=== PATIENT | male | born 1940 | race Caucasian/White ===

== ENCOUNTER 2019-12-18 08:20 | Outpatient (CLI) | payer MEDICARE ==
--- NOTE | 2019-12-18 11:22 | MRI ---
MRI OF THE RIGHT KNEE WITHOUT CONTRAST: INDICATION: History of osteoarthritis. COMPARISON: CT of the right knee dated 09/12/2019 and a right knee radiograph dated 09/06/2019. FINDINGS: There are prominent marginal osteophytes affecting all compartments of the right knee but most severe ly affecting the medial femorotibial joint compartment where there are areas of full-thickness articu lar cartilage thinning and subchondral edema involving the medial tibial plateau and medial femoral c ondyle. There is a complex multidirectional degenerative-type tear involving the anterior junction, body, and posterior horn of the medial meniscus. There is a vertically oriented radial component inv olving the posterior horn of the medial meniscus with extension into the posterior root. There is ex trusion of the medial meniscus. There is a highly degenerative multidirectional tear involving the p osterior root of the lateral meniscus. The ACL, PCL, MCL, and LCLC are intact. The extensor mechani sm is intact. There is a moderate-sized joint effusion and Neville's cyst present. A small medial sup rapatellar synovial PLICA. IMPRESSION: 1. Moderate to severe osteoarthrosis of the right knee. 2. Medial and lateral meniscal tears. POS: [facility]
== END 2019-12-18 08:21 | disposition home or self-care (01) ==
LOC: SCSMRI 08:20
PROVIDERS: ATTEND Internal Medicine
DX: M17.9 Osteoarthritis of knee, unspecified (principal); M17.11 Unilateral primary osteoarthritis, right knee; S83.241A Other tear of medial meniscus, current injury, right knee, initial encounter; S83.281A Other tear of lateral meniscus, current injury, right knee, initial encounter

== ENCOUNTER 2021-03-08 10:23 | Outpatient (CLI) | payer MEDICARE | END 2021-03-08 10:24 | disposition home or self-care (01) | LOC: SCSMRI 10:23 | PROVIDERS: ATTEND Internal Medicine | DX: M47.812 Spondylosis without myelopathy or radiculopathy, cervical region (principal) | CPT/HCPCS: 72141 ==

== ENCOUNTER 2021-07-18 10:40 | Outpatient (CLI) | payer MEDICARE ==
[2021-07-18 13:03] LABS: #Eosinphils 0.1 10x3/uL (0.0-0.5); #Monocytes 0.5 10x3/uL (0.0-1.1); #Neutrophils 2.9 10x3/uL (1.5-8.4); %Basophils 0.4 % (0.0-2.0); %Eosinophils 1.8 % (0.0-6.0); %Lymphocytes 30.9 % (18.0-47.0); %Monocytes 9.5 % (0.0-10.0); Hemoglobin 13.1 g/dL (13.5-17.5); Mean Corpuscular HGB CONC 32.5 g/dL (32.0-36.0); Mean Corpuscular Hemoglobin 29.8 pg (27.0-33.0); Mean Corpuscular Volume 91.8 fl (81.2-95.1); Mean Platelet Volume 10.1 fl (7.4-10.4); Platelet Count 213 10x3/uL (150-450); RBC Distribution Width 13.5 % (11.5-14.5); Red Blood Cell (RBC) Count 4.39 10x6/uL (4.32-5.72); White Blood Cell (WBC) Count 5.1 10x3/uL (3.5-10.5)
[2021-07-18 23:43] LABS: SARS-CoV-2 PCR by NAA Not Detected (NotDetected)
== END 2021-07-18 10:41 | disposition home or self-care (01) ==
LOC: LABBT 10:40
PROVIDERS: ATTEND Orthopaedic Surgery Hand Surgery
DX: Z01.818 Encounter for other preprocedural examination (principal); G56.03 Carpal tunnel syndrome, bilateral upper limbs; Z20.822 Contact with and (suspected) exposure to COVID-19
CPT/HCPCS: 85025; 93005; U0003; U0005; 93010

== ENCOUNTER 2021-07-22 06:38 | Day surgery (SDC) | payer MEDICARE ==
[2021-07-20 13:11] VITALS: BMI 24.7
[2021-07-22] MEDS ORDERED: Bacitracin Zinc Ointment 30 gm TUBE ONE (08:15)
[2021-07-22] MEDS ORDERED: Neomycin-Polymyxin 1 ML AMP ONE (08:15)
[2021-07-22] MEDS ORDERED: Bupivacaine PF 0.5% 30 ML VIAL ONE (08:15)
[2021-07-22] MEDS ORDERED: Betamet Acet/Betamet Na Ph 30 MG/5 ML VIAL ONE (08:15)
[2021-07-22] MEDS ORDERED: ceFAZolin 2 GM/DEX 5% 100 ML BAG ONE (09:12)
[2021-07-22] MEDS ORDERED: Fentanyl 100 MCG/2 ML VIAL ONE (09:23)
[2021-07-22] MEDS ORDERED: PROPOFOL 200 MG/20 ML VIAL ONE (09:29)
[2021-07-22] MEDS ORDERED: Lidocaine 1% PF 5 ML VIAL ONE (09:29)
[2021-07-22] MEDS ORDERED: Ketorolac Tromethamine 30 MG/ML VIAL ONE (10:26)
== END 2021-07-22 12:10 | disposition home or self-care (01) ==
LOC: SDC 06:38
PROVIDERS: ATTEND Orthopaedic Surgery Hand Surgery
PROC: 01N50ZZ Release Median Nerve, Open Approach (ICD-10-PCS; principal; 2021-07-22)
DX: G56.03 Carpal tunnel syndrome, bilateral upper limbs (principal); I10 Essential (primary) hypertension; K21.9 Gastro-esophageal reflux disease without esophagitis; Z79.899 Other long term (current) drug therapy; Z88.5 Allergy status to narcotic agent; Z87.891 Personal history of nicotine dependence
CPT/HCPCS: J0702; J1885; J2704; J3010; S0020

== ENCOUNTER 2021-10-21 12:53 | Emergency (ER) | payer MEDICARE ==
[2021-10-21 14:23] LABS: #Lymphocytes 2.1 thou/uL (1.20-3.40); #Monocytes 1.7 thou/uL (0.11-0.59); #Neutrophils 7.8 thou/uL (1.40-6.50); %Basophils 0.2 % (0.0-1.0); %Eosinophils 0.2 % (0.0-10.0); %Lymphocytes 17.8 % (21.0-51.0); %Monocytes 14.6 % (0.0-10.0); %Neutrophils 67.3 % (42.0-75.0); Hemoglobin 14.1 g/dL (14.0-18.0); Mean Corpuscular HGB CONC 32.9 g/dL (32.0-36.0); Mean Corpuscular Hemoglobin 30.3 pg (27.0-31.0); Mean Platelet Volume 7.2 fL (7.4-10.4); Platelet Count 199 thou/uL (130-400); RBC Distribution Width 13.1 % (11.5-14.5); Red Blood Cell (RBC) Count 4.66 mill/uL (4.70-6.10); White Blood Cell (WBC) Count 11.5 thou/uL (4.8-10.8)
[2021-10-21 14:45] LABS: ALT (SGPT) 32 U/L (8-55); AST (SGOT) 30 U/L (5-34); Albumin 4.1 g/dL (3.4-4.8); Alkaline Phosphatase 85 U/L (40-110); Anion Gap 15 mmol/L (10-20); BUN (Urea Nitrogen) 16 mg/dL (8.4-25.7); Bilirubin, Total 1.6 mg/dL (0.2-1.2); Calc. Creatinine Clearance 0 mL/min (70-130); Calcium 9.2 mg/dL (7.8-10.44); Carbon Dioxide 24 mmol/L (23-31); Chloride 101 mmol/L (98-107); Globulin 3.4 g/dL (2.4-3.5); Glucose 105 mg/dL (83-110); Lipase 17 U/L (8-78); Potassium 3.7 mmol/L (3.5-5.1); Protein, Total 7.5 g/dL (5.8-8.1); Sodium 136 mmol/L (136-145)
[2021-10-21 21:06] LABS: SARS-CoV-2 PCR by NAA Not Detected (NotDetected)
== END 2021-10-21 15:35 | disposition home or self-care (01) ==
LOC: ERS 12:53
DX: J18.9 Pneumonia, unspecified organism (principal); I10 Essential (primary) hypertension; Z20.822 Contact with and (suspected) exposure to COVID-19
CPT/HCPCS: 71045; 80053; 83690; 85025; 99284; U0003; U0005; 36415

== ENCOUNTER 2022-05-07 12:01 | Inpatient (IN) | payer MEDICARE ==
[2022-05-07] MEDS ORDERED: Fentanyl 100 MCG/2 ML VIAL ONE ×2 (12:08→20:22)
[2022-05-07 12:54] LABS: Hemoglobin 13.5 g/dL (14.0-18.0); Mean Corpuscular HGB CONC 32.9 g/dL (32.0-36.0); Mean Corpuscular Hemoglobin 30.8 pg (27.0-31.0); Mean Corpuscular Volume 93.4 fL (78.0-98.0); Mean Platelet Volume 7.6 fL (7.4-10.4); Platelet Count 271 thou/uL (130-400); RBC Distribution Width 13.4 % (11.5-14.5); Red Blood Cell (RBC) Count 4.39 mill/uL (4.70-6.10); White Blood Cell (WBC) Count 6.8 thou/uL (4.8-10.8)
[2022-05-07 13:02] LABS: ALT (SGPT) 11 U/L (8-55); AST (SGOT) 17 U/L (5-34); Albumin 4.3 g/dL (3.4-4.8); Alcohol Less than 10 mg/dL (Less than 10); Alkaline Phosphatase 85 U/L (40-110); Anion Gap 23 mmol/L (10-20); BUN (Urea Nitrogen) 19 mg/dL (8.4-25.7); Bilirubin, Total 1.7 mg/dL (0.2-1.2); Calc. Creatinine Clearance 0 mL/min (70-130); Calcium 9.2 mg/dL (7.8-10.44); Carbon Dioxide 16 mmol/L (23-31); Chloride 106 mmol/L (98-107); Estimated GFR 77; Globulin 2.6 g/dL (2.4-3.5); Glucose 137 mg/dL (83-110); Protein, Total 6.9 g/dL (5.8-8.1); Sodium 142 mmol/L (136-145)
[2022-05-07 13:06] LABS: Phosphorus Less than 1.0 mg/dL (2.3-4.7)
[2022-05-07 13:11] LABS: INR-International Normal Ratio 1.2; Prothrombin Time 15.3 sec (12.0-14.7)
[2022-05-07 13:12] LABS: PTT 26.2 sec (22.9-36.1)
[2022-05-07 13:15] LABS: Band 4 % (5-11); Eosinophils 1 % (0-10); Lymphocytes 22 % (21-51); MDiff Complete? YES; Monocytes 12 % (0-10); Neutrophil 46 % (42-75); Platelet Morphology Comment Appears Adequate; Polychromasia SLIGHT = 2-3 cells (100X) (0-2/hpf); Reactive Lymphocytes 15 % (0-10)
[2022-05-07 13:20] LABS: Lactic Acid 5.5 mmol/L (0.5-2.2)
[2022-05-07] MEDS ORDERED: Dextrose 5% in Water 1,000 ML IV PRN (13:31)
[2022-05-07] MEDS ORDERED: Ondansetron PF 4 MG/2 ML Vial IVP PRN (13:31)
[2022-05-07] MEDS ORDERED: Dextrose 50% Abboject 50 ML SYRINGE SLOW IVP PRN (13:31)
[2022-05-07] MEDS ORDERED: hydrALAZINE 20 MG/ML VIAL SLOW IVP PRN (13:31)
[2022-05-07] MEDS ORDERED: Cyclobenzaprine 10 MG TAB PO PRN (13:41)
[2022-05-07] MEDS ORDERED: traMADol HCl 50 MG TAB PO PRN ×2 (13:41)
[2022-05-07] MEDS ORDERED: ceFAZolin 2 GM/Dextrose 50 ML 2 GM in Premix Bag 1 BAG IVPB SCH (13:45)
[2022-05-07] MEDS ORDERED: Sodium Chloride 0.9% 1,000 ML IV SCH (13:45)
[2022-05-07] MEDS ORDERED: fentaNYL Citrate/PF 100 MCG/2 ML SYRINGE ONE ×3 (13:46→19:00)
[2022-05-07] MEDS ORDERED: Ibuprofen 600 MG TAB PO SCH (14:00)
[2022-05-07] MEDS ORDERED: CEFAZOLIN 2 GM in Sodium Chloride 0.9% 100 ML IVPB SCH (14:15)
[2022-05-07] MEDS ORDERED: CEFAZOLIN 2 GM VIAL ONE (14:30)
[2022-05-07] MEDS ORDERED: Sodium Chloride 0.9% 100 ML ONE (14:30)
[2022-05-07] MEDS ORDERED: Bupivacaine/Epinephrine 0.25% 30 ML VIAL ONE (14:54)
[2022-05-07] MEDS ORDERED: Potassium Phosphate 30 MMOL in Sodium Chloride 0.9% 250 ML 250 ML IVPB SCH ×2 (15:00→21:45)
[2022-05-07] MEDS ORDERED: Phenylephrine 10 MG/ML VIAL ONE (15:14)
[2022-05-07] MEDS ORDERED: Lidocaine 1% PF 5 ML VIAL ONE (15:14)
[2022-05-07] MEDS ORDERED: PROPOFOL 200 MG/20 ML VIAL ONE (15:14)
[2022-05-07] MEDS ORDERED: Rocuronium Bromide 10 MG/ML (10ML VIAL) ONE (15:14)
[2022-05-07] MEDS ORDERED: ePHEDrine 50 MG/ML VIAL ONE (15:14)
[2022-05-07] MEDS ORDERED: Succinylcholine 200 MG/10 ml SYRINGE FS ONE (15:14)
[2022-05-07] MEDS ORDERED: Ondansetron PF 4 MG/2 ML Vial ONE (15:14)
[2022-05-07 15:34] LABS: SARS-CoV-2 NAA Rapid Test Not Detected (NotDetected)
[2022-05-07] MEDS ORDERED: SUGAMMADEX SODIUM 200 MG/2 ML VIAL ONE (19:25)
[2022-05-07] MEDS ORDERED: Promethazine HCl 25 MG/ML VIAL IVPB PRN (19:28)
[2022-05-07] MEDS ORDERED: Promethazine HCl 25 MG/ML VIAL IM PRN (19:28)
[2022-05-07] MEDS ORDERED: Ondansetron HCl/PF 4 MG/2 ML Vial IVP PRN (19:28)
[2022-05-07] MEDS: Senokot S 8.6-50 MG TAB PO SCH (22:20)
[2022-05-07] MEDS: CEFAZOLIN 2 GM in Sodium Chloride 0.9% 100 ML IVPB SCH (22:20)
[2022-05-07] MEDS: Famotidine 20 MG TAB PO SCH (22:21)
[2022-05-07] MEDS: Gabapentin 100 MG CAP PO SCH ×2 (22:21)
[2022-05-07] MEDS: Morphine 4 MG/ML VIAL SLOW IVP PRN (22:22)
[2022-05-07] MEDS: Acetaminophen 500 MG TAB PO SCH ×2 (22:39→22:50)
[2022-05-07] MEDS: Ibuprofen 200 MG TAB PO SCH (22:47)
[2022-05-07 23:00] VITALS: BMI 24.0
[2022-05-07 23:05] LABS: Bacteria/HPF None Seen HPF (None Seen); Bilirubin Negative (Negative); Blood, Urine 3+ (Negative); Clarity Clear (Clear); Glucose, Urine (Dipstick) 200 mg/dL (Negative); Ketone, Urine Negative (Negative); Leukocyte 25 Leu/uL (Negative); Nitrite Negative (Negative); Protein, Urine (Dipstick) Negative (Neg-Trace); RBC/HPF Greater than 50 HPF (0-3); Specific Gravity, Urine 1.015 (1.002-1.036); Squamous Epithelial None Seen HPF (0-3); Urobilinogen Normal mg/dL (Less than 2)
[2022-05-07 23:06] LABS: Urine Culture Reflex Yes Yes
[2022-05-08] MEDS: Sodium Chloride 0.9% 1,000 ML IV SCH ×2 (02:30→04:12)
[2022-05-08 04:20] LABS: Lactic Acid 1.4 mmol/L (0.5-2.2)
[2022-05-08 04:26] LABS: Anion Gap 14 mmol/L (10-20); BUN (Urea Nitrogen) 16 mg/dL (8.4-25.7); CK (CPK) 1121 U/L (30-200); Calc. Creatinine Clearance 76 mL/min (70-130); Calcium 7.8 mg/dL (7.8-10.44); Carbon Dioxide 23 mmol/L (23-31); Chloride 107 mmol/L (98-107); Estimated GFR 90; Glucose 122 mg/dL (83-110); Magnesium 1.9 mg/dL (1.6-2.6); Phosphorus 4.6 mg/dL (2.3-4.7); Potassium 4.3 mmol/L (3.5-5.1); Sodium 140 mmol/L (136-145)
[2022-05-08 04:41] LABS: Band 20 % (5-11); Hemoglobin 11.1 g/dL (14.0-18.0); Lymphocytes 24 % (21-51); MDiff Complete? YES; Mean Corpuscular HGB CONC 34.2 g/dL (32.0-36.0); Mean Corpuscular Hemoglobin 32.3 pg (27.0-31.0); Mean Corpuscular Volume 94.4 fL (78.0-98.0); Mean Platelet Volume 7.3 fL (7.4-10.4); Monocytes 2 % (0-10); Neutrophil 54 % (42-75); Platelet Count 203 thou/uL (130-400); RBC Distribution Width 13.5 % (11.5-14.5); Red Blood Cell (RBC) Count 3.45 mill/uL (4.70-6.10); White Blood Cell (WBC) Count 4.5 thou/uL (4.8-10.8)
[2022-05-08] MEDS: Acetaminophen 500 MG TAB PO SCH ×3 (06:04→18:20)
[2022-05-08] MEDS: Ibuprofen 200 MG TAB PO SCH ×3 (06:04→21:47)
[2022-05-08] MEDS: CEFAZOLIN 2 GM in Sodium Chloride 0.9% 100 ML IVPB SCH (06:05)
[2022-05-08] MEDS: Morphine 4 MG/ML VIAL SLOW IVP PRN (06:07)
[2022-05-08] MEDS: Gabapentin 100 MG CAP PO SCH ×3 (08:19→21:46)
[2022-05-08] MEDS: Famotidine 20 MG TAB PO SCH (08:25)
[2022-05-08] MEDS: Polyethylene Glycol 3350 17 GM Packet PO SCH (08:27)
[2022-05-08] MEDS: Senokot S 8.6-50 MG TAB PO SCH ×2 (08:27→21:45)
[2022-05-08] MEDS ORDERED: traMADol HCl 50 MG TAB PO PRN (09:26)
[2022-05-08] MEDS: Apixaban 5 MG TAB PO SCH ×2 (10:43→21:45)
[2022-05-08] MEDS: traMADol HCl 50 MG TAB PO SCH ×3 (10:43→20:00)
[2022-05-08] MEDS ORDERED: Tamsulosin HCl 0.4 MG CAP PO SCH (11:30)
[2022-05-08] MEDS ORDERED: Sodium Chloride 0.9% 1,000 ML IV SCH (15:45)
[2022-05-08] MEDS ORDERED: Hydrocortisone Sod Succ/PF 100 mg/2 ml Vial IVP SCH (15:45)
[2022-05-08 16:09] LABS: #Lymphocytes 1.2 thou/uL (1.20-3.40); #Monocytes 0.7 thou/uL (0.11-0.59); #Neutrophils 3.1 thou/uL (1.40-6.50); %Basophils 0.2 % (0.0-1.0); %Eosinophils 0.7 % (0.0-10.0); %Lymphocytes 24.3 % (21.0-51.0); %Monocytes 13.6 % (0.0-10.0); %Neutrophils 61.3 % (42.0-75.0); Hemoglobin 9.6 g/dL (14.0-18.0); Mean Corpuscular HGB CONC 32.9 g/dL (32.0-36.0); Mean Corpuscular Volume 94.2 fL (78.0-98.0); Mean Platelet Volume 7.3 fL (7.4-10.4); Platelet Count 183 thou/uL (130-400); RBC Distribution Width 13.6 % (11.5-14.5); White Blood Cell (WBC) Count 5.1 thou/uL (4.8-10.8)
[2022-05-08 16:49] LABS: Anion Gap 13 mmol/L (10-20); BUN (Urea Nitrogen) 20 mg/dL (8.4-25.7); Calc. Creatinine Clearance 61 mL/min (70-130); Calcium 7.7 mg/dL (7.8-10.44); Carbon Dioxide 24 mmol/L (23-31); Chloride 104 mmol/L (98-107); Estimated GFR 78; Glucose 109 mg/dL (83-110); Magnesium 1.8 mg/dL (1.6-2.6); Phosphorus 3.3 mg/dL (2.3-4.7); Potassium 3.8 mmol/L (3.5-5.1); Sodium 137 mmol/L (136-145)
[2022-05-08] MEDS ORDERED: Magnesium 2 GM/50 ML(in water) 2 GM in Premix Bag 1 BAG IVPB SCH (17:30)
[2022-05-08] MEDS: Montelukast Sodium 10 mg Tablet PO SCH (21:45)
[2022-05-08] MEDS: Hydrocortisone Sod Succ/PF 100 mg/2 ml Vial IVP SCH (21:46)
[2022-05-08] MEDS: Latanoprost 0.005% Ophth Soln 2.5 ml Bottle L EYE SCH (21:46)
[2022-05-09] MEDS: traMADol HCl 50 MG TAB PO SCH ×4 (00:02→18:16)
[2022-05-09] MEDS: Acetaminophen 500 MG TAB PO SCH ×4 (00:03→18:15)
[2022-05-09] MEDS: Hydrocortisone Sod Succ/PF 100 mg/2 ml Vial IVP SCH ×2 (03:28→10:10)
[2022-05-09] MEDS: Ibuprofen 200 MG TAB PO SCH ×3 (05:12→21:03)
[2022-05-09 05:34] LABS: #Lymphocytes 0.6 thou/uL (1.20-3.40); #Monocytes 0.8 thou/uL (0.11-0.59); %Basophils 0.3 % (0.0-1.0); %Lymphocytes 9.1 % (21.0-51.0); %Monocytes 12.3 % (0.0-10.0); %Neutrophils 78.3 % (42.0-75.0); Hemoglobin 9.2 g/dL (14.0-18.0); Mean Corpuscular HGB CONC 32.4 g/dL (32.0-36.0); Mean Corpuscular Hemoglobin 31.5 pg (27.0-31.0); Mean Corpuscular Volume 97.2 fL (78.0-98.0); Mean Platelet Volume 7.6 fL (7.4-10.4); Platelet Count 159 thou/uL (130-400); RBC Distribution Width 13.4 % (11.5-14.5); Red Blood Cell (RBC) Count 2.93 mill/uL (4.70-6.10); White Blood Cell (WBC) Count 6.4 thou/uL (4.8-10.8)
[2022-05-09 06:38] LABS: Anion Gap 12 mmol/L (10-20); BUN (Urea Nitrogen) 22 mg/dL (8.4-25.7); CK (CPK) 1043 U/L (30-200); Calc. Creatinine Clearance 64 mL/min (70-130); Calcium 8.1 mg/dL (7.8-10.44); Carbon Dioxide 23 mmol/L (23-31); Chloride 105 mmol/L (98-107); Estimated GFR 83; Glucose 141 mg/dL (83-110); Magnesium 2.6 mg/dL (1.6-2.6); Phosphorus 2.6 mg/dL (2.3-4.7); Potassium 4.1 mmol/L (3.5-5.1); Sodium 136 mmol/L (136-145)
[2022-05-09] MEDS ORDERED: Tamsulosin HCl 0.4 MG CAP PO SCH (09:00)
[2022-05-09] MEDS: Polyethylene Glycol 3350 17 GM Packet PO SCH (09:57)
[2022-05-09] MEDS: Gabapentin 100 MG CAP PO SCH ×3 (09:57→21:03)
[2022-05-09] MEDS: Senokot S 8.6-50 MG TAB PO SCH ×2 (09:58→21:04)
[2022-05-09] MEDS: Apixaban 5 MG TAB PO SCH ×2 (09:58→21:04)
[2022-05-09] MEDS: Latanoprost 0.005% Ophth Soln 2.5 ml Bottle L EYE SCH (21:02)
[2022-05-09] MEDS: Montelukast Sodium 10 mg Tablet PO SCH (21:04)
[2022-05-09] MEDS: Tamsulosin HCl 0.4 MG CAP PO SCH (21:04)
[2022-05-10] MEDS: traMADol HCl 50 MG TAB PO SCH ×4 (00:07→17:31)
[2022-05-10] MEDS: Acetaminophen 500 MG TAB PO SCH ×4 (00:07→17:31)
[2022-05-10] MEDS: Ibuprofen 200 MG TAB PO SCH ×3 (05:43→21:09)
[2022-05-10] MEDS: Gabapentin 100 MG CAP PO SCH ×3 (10:09→21:10)
[2022-05-10] MEDS: Apixaban 5 MG TAB PO SCH ×2 (10:10→21:11)
[2022-05-10] MEDS: Senokot S 8.6-50 MG TAB PO SCH ×2 (11:58→21:11)
[2022-05-10] MEDS: Polyethylene Glycol 3350 17 GM Packet PO SCH (11:58)
[2022-05-10] MEDS ORDERED: Calcium Carbonate 500 MG ChewTAB PO PRN (12:08)
[2022-05-10] MEDS: Montelukast Sodium 10 mg Tablet PO SCH (21:10)
[2022-05-10] MEDS: Latanoprost 0.005% Ophth Soln 2.5 ml Bottle L EYE SCH (21:11)
[2022-05-10] MEDS: Tamsulosin HCl 0.4 MG CAP PO SCH (21:11)
[2022-05-11] MEDS: traMADol HCl 50 MG TAB PO SCH ×4 (00:11→17:45)
[2022-05-11] MEDS: Acetaminophen 500 MG TAB PO SCH ×4 (00:12→17:44)
[2022-05-11] MEDS: Ibuprofen 200 MG TAB PO SCH ×2 (05:54→15:07)
[2022-05-11] MEDS ORDERED: Apixaban 5 MG TAB PO SCH (09:00)
[2022-05-11] MEDS: Gabapentin 100 MG CAP PO SCH ×2 (09:19→15:06)
[2022-05-11] MEDS: Polyethylene Glycol 3350 17 GM Packet PO SCH (12:35)
[2022-05-11] MEDS: Senokot S 8.6-50 MG TAB PO SCH (12:36)
[2022-05-11 16:10] VITALS: BP 152/59; TEMP 98.3
== END 2022-05-11 18:48 | DRG 481 ==
LOC: ERS 12:01 → SDC 14:02 → IMCU/EMU 21:48 → SURG A 05-08 19:45
PROVIDERS: ADMIT Student in an Organized Health Care Education/Training Program; ATTEND Surgery
PROC: 0QHB36Z Insertion of Intramedullary Internal Fixation Device into Right Lower Femur, Percutaneous Approach (ICD-10-PCS; principal; 2022-05-07)
PROC: 0QSG04Z Reposition Right Tibia with Internal Fixation Device, Open Approach (ICD-10-PCS; 2022-05-07)
DX: S82.201A Unspecified fracture of shaft of right tibia, initial encounter for closed fracture (principal); E87.2 Acidosis; M97.11XA Periprosthetic fracture around internal prosthetic right knee joint, initial encounter; S72.451A Displaced supracondylar fracture without intracondylar extension of lower end of right femur, initial encounter for closed fracture; S82.451A Displaced comminuted fracture of shaft of right fibula, initial encounter for closed fracture; Z20.822 Contact with and (suspected) exposure to COVID-19; I10 Essential (primary) hypertension; K21.9 Gastro-esophageal reflux disease without esophagitis; G47.00 Insomnia, unspecified; G25.81 Restless legs syndrome; E87.6 Hypokalemia; E83.39 Other disorders of phosphorus metabolism; W55.22XA Struck by cow, initial encounter; Z88.5 Allergy status to narcotic agent; Z79.899 Other long term (current) drug therapy
CPT/HCPCS: 36415; 71045; 72170; 76000; 80048; 80053; 80307; 81001; 82533; 82550; 83605; 83735; 84100; 85025; 85610; 85730; 87086; 93005; 94660; 96374; C1713; G0390; J0690; J1720; J2270; J2370; J2405; J2704; J3010; J3475; J3490; J7050; U0002